=== PATIENT | male | born 1950 | race Caucasian/White ===

== ENCOUNTER 2016-04-15 16:53 | Emergency (ER) | payer OTHER ==
[2016-04-15 17:01] VITALS: BP 153/98
--- OUTSIDE RECORDS SUMMARY | 2016-04-15 17:11 | XMS REPORT | Continuity of Care Document ---
:1950 Author Organization [employer] [place] [address] Care Team Providers Name Role Phone Provider, Not In System Primary Care Provider Unavailable Source Comments This disclosure is being made pursuant to the [employer] program and maynot contain all information available regarding this patient.[employer] Active Allergies and Adverse Reactions Not on File Current Medications Be aware that medications may not be up to date as of this document. Alwaysverify current medications with the patient. Not on file Active Problems Not on file Social History Tobacco Use Types Packs/Day Years Used Date Never Smoker Last Filed Vital Signs Vital Sign Reading Time Taken Blood Pressure 144/88 02/18/2011 8:18 AM INFANT BABYSITTER Pulse 88 02/18/2011 8:18 AM INFANT BABYSITTER Temperature - - Respiratory Rate - - Height - - Weight 99.338 kg (219 lb) 02/18/2011 8:12 AM INFANT BABYSITTER Body Mass Index - - Oxygen Saturation - - Plan of Care Date Type Specialty Providers Description 04/30/2016 Appointment Neurosurgery Andrew Meza Jr., MD [address] [place] [phone] (Fax) Health Maintenance Due Date Last Done Comments Tetanus/Pertussis (1 - Tdap) 1970 Colonoscopy 2001 Well Adult Visit 2001 Zoster Vaccine 60+ 2011 Influenza Immunization (#1) 2015 Pneumococcal Low/Medium Risk 65+ (1 of 2 - PCV13) 01/24/2016 Results from Last 3 Months Not on file
[2016-04-15] MEDS ORDERED: DIPHTH,PERTUSS(ACELL),TET VAC 0.5 ML VIAL IM ONE (17:14)
[2016-04-15] MEDS: DIPHTH,PERTUSS(ACELL),TET VAC 0.5 ML VIAL IM ONE (17:17)
--- NOTE | 2016-04-15 17:19 | ERNOTE ---
Medical Problem HPI - General Chief Complaint: Laceration Time Seen by Provider: 04/15/16 16:59 Source: patient Exam Limitations: no limitations - Immun/Allergies/Home Medications Immunizations: IMMUNIZATION HX Immunizations Up to Date Yes Allergies/Adverse Reactions: Allergies Penicillins Allergy (Verified 04/15/16 17:01) Home Medications: HOME MEDICATIONS Amitriptyline HCl [Elavil] 50 mg PO HS 06/07/14 [Last Taken Unknown] Cyclobenzaprine HCl [Flexeril] 10 mg PO TID #15 tablet 06/07/14 [Last Taken Unknown] HYDROcodone/ACETAMINOPHEN [[place] 5-325] 1 each PO Q4H #30 tablet 06/07/14 [Last Taken Unknown] Losartan Potassium [Cozaar] 100 mg PO DAILY 06/07/14 [Last Taken Unknown] Nabumetone 750 mg PO BID 06/07/14 [Last Taken Unknown] Paroxetine HCl [Paxil] 40 mg PO DAILY 06/07/14 [Last Taken Unknown] Zolpidem Tartrate 10 mg PO HS 06/07/14 [Last Taken Unknown] amLODIPine BESYLATE [Norvasc] 10 mg PO DAILY 06/07/14 [Last Taken Unknown] - History of Present History Narrative: 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 Timing: constant Severity: mild Review of Systems - Review of Systems Constitutional: Present: See HPI EYE: Present: no symptoms reported ENT: Present: no symptoms reported Respiratory: Present: no symptoms reported Cardiology: Present: no symptoms reported Gastrointestinal/Abdominal: Present: no symptoms reported Genitourinary: Present: no symptoms reported Musculoskeletal: Present: no symptoms reported Skin: Present: no symptoms reported Neurological: Present: no symptoms reported Endocrine: Present: no symptoms reported Hematologic/Lymphatic: Present: no symptoms reported Psych: Present: no symptoms reported - Patient's Past Medical History Patient History - Medical: No pertinent hx Patient History - Cardiac/Respiratory: Hypertension Patient History - Cancer: No Hx of Cancer Patient History - Surgical Procedures: No surgical history - Social History Smoking Status: Never smoker Have you smoked in the past 12 months: No - Immunizations Immunizations Up to Date: Yes Physical Exam - Physical Exam General Appearance: Present: wd/wn, alert, mild distress, other - 2 cm scalp laceration at the frontoparietal region Eye Exam: Normal inspection: bilateral, PERRL: bilateral Ears, Nose, Throat: Present: normal ENT inspection, H, normal pharynx Neck: Present: normal inspection, nontender Respiratory: Present: no respiratory distress, normal breath sounds, no accessory muscle use, chest nontender, lungs clear Cardiovascular/Chest: Present: regular rate, rhythm, no murmur, normal peripheral pulses Gastrointestinal/Abdominal: Present: normal bowel sounds, nontender, nondistended, soft, no organomegaly Rectal Exam: Present: deferred Back Exam: Present: normal inspection, normal range of motion Extremity Exam: Present: normal inspection, non-tender, no edema, normal range of motion Neurological Exam: Present: alert, oriented, normal mood/affect Skin Exam: Present: normal color, warm/dry Lymphatic Exam: Present: no adenopathy ED Progress - Vital Signs Patient's Vital Signs:: I have reviewed the patient's vital signs. Vital Signs: Vital Signs 04/15/16 16:58 Temperature 37.9 C H Pulse Rate 95 Respiratory 12 Rate Blood Pressure 153/98 O2 Sat by Pulse 93 Oximetry - Progress/Reassessment Chief Complaint: Laceration Progress:: Improved - Transfer of Care Expected Disposition: Discharge Procedures Head Wound's Depth/Shape: superficial, linear Wound Explored: clean Foreign body identified: metal Distal NVT: neuro/vasc intact Wound Repaired With: dottie - 4 dottie used to close the wound Complications: Pt rico procedure well Plan - Plan Plan: Dottie out in 5 days Departure - Departure Clinical Impression: Scalp laceration Qualifiers: Encounter type: initial encounter Qualified Code(s): S01.01XA - Laceration without foreign body of scalp, initial encounter Condition: Good Instructions: Laceration Care, Adult, [id number] Referrals: Marisabel Beebe DO [Primary Care Provider] -
== END 2016-04-15 17:19 | disposition home or self-care (01) ==
LOC: ER 16:53
PROC: 0HQ0XZZ Repair Scalp Skin, External Approach (ICD-10-PCS; principal; 2016-04-15)
DX: S01.01XA Laceration without foreign body of scalp, initial encounter (principal); X58.XXXA Exposure to other specified factors, initial encounter; Y93.H3 Activity, building and construction; Y92.9 Unspecified place or not applicable; Y99.0 Civilian activity done for income or pay; Z23 Encounter for immunization

== ENCOUNTER 2019-03-21 08:31 | Inpatient (IN) ==
--- NOTE | 2019-03-02 09:05 | ANES ---
Anesthesia Pre Procedure Eval HOME MEDICATIONS PARoxetine HCL [Paxil] 40 mg PO DAILY 06/07/14 [Last Taken Unknown] Zolpidem Tartrate 10 mg PO HS 06/07/14 [Last Taken Unknown] amLODIPine BESYLATE [Norvasc] 10 mg PO DAILY 06/07/14 [Last Taken 12/24/18 08:30] pravastatin 20 mg tablet 20 mg PO DAILY 09/23/17 [Last Taken Unknown] alprazolam 0.5 mg tablet 0.5 mg PO DAILY PRN 02/24/19 [Last Taken Unknown] amitriptyline 10 mg tablet 10 mg PO DAILY 02/24/19 [Last Taken Unknown] irbesartan 150 mg tablet 300 mg PO DAILY 02/24/19 [Last Taken Unknown] vitamin B12 0.5 mg-folic acid 1 mg tablet 1 tab PO DAILY 02/24/19 [Last Taken Unknown] Hydrochlorothiazide [Microzide] 12.5 mg PO DAILY 03/02/19 [Last Taken Unknown] Allergies/Adverse Reactions: Allergies Allergy/AdvReac Type Severity Reaction Status Date / Time Penicillins Allergy severe Verified 03/02/19 07:53 itching everywhere - Planned Procedure Planned Procedure: L Arthroplasty Total Knee Medication List Reviewed:: Yes Allergies Verified: Yes Medical History (Last Reviewed 03/02/19 @ 09:03 by Nadeem Perez CRNA) Bilateral primary osteoarthritis of knee (Acute) Onset Date: Unknown Degenerative joint disease of knee Depression Fibromyalgia Hyperlipidemia Hypertension Insomnia Surgical History (Last Reviewed 03/02/19 @ 09:03 by Nadeem Perez CRNA) History of prostate surgery Family History (Last Reviewed 03/02/19 @ 09:03 by Nadeem Perez CRNA) Father Heart disease Mother Diabetes Hypertension Brother Cancer prostate - Family Anesthesia History Family History:: no untoward family reactions to anesthesia, no familial b leeding tendencies, no family history of clotting disorders, no family history of premature - Airway/Neck/Teeth Within Normal Limits:: Yes Teeth Condition: intact Denture Type: Perm crown/bridge Mallampatti Score: 2 Thyromental (T-M) distance: > 6 cm Mandibulo Hyoid distance: > 3 cm - Respiratory Smoking Status: Never smoker Discussed smoking cessation including day of surgery: No - Cardiovascular Tolerate Activity: Fair Heart Sounds: S1 & S2, Regular - Anesthesia Assessment and Plan ASA Class: PS, III Anesthesia Type Plan: Block - ultrasound guided adductor canal nerve block for postop analgesia, Spinal
[~2019-03-21 08:31] MED LIST: MORPHINE SULFATE 15 MG TABLET.SA PO PRN; ROPIVACAINE HCL/PF 100 MG, EPINEPHrine 0.2 MG, KETOROLAC TROMETHAMINE 30 MG in NORMAL S... IJ PRN; TRANEXAMIC ACID 1,000 MG in NORMAL SALINE 100 ML IV PRN; ceFAZolin SODIUM 1 GM VIAL IV PRN
[2019-03-21] MEDS ORDERED: LIDOCAINE HCL 20 ML VIAL ONE (09:13)
[2019-03-21] MEDS ORDERED: ONDANSETRON HCL/PF 2 MG/ML VIAL ONE (09:13)
[2019-03-21] MEDS ORDERED: fentaNYL CITRATE/PF 50 MCG/ML AMPUL ONE (09:13)
[2019-03-21] MEDS ORDERED: BUPIVACAINE HCL/EPINEPHRINE 50 ML VIAL ONE (09:14)
[2019-03-21] MEDS ORDERED: PROPOFOL VIAL IV ONE (09:14)
[2019-03-21] MEDS: RINGER'S SOLUTION,LACTATED 1,000 ML IV PRN ×3 (09:19→11:49)
[2019-03-21] MEDS ORDERED: ceFAZolin SODIUM 1 GM VIAL ONE (09:24)
[2019-03-21] MEDS ORDERED: MAGNESIUM HYDROXIDE 30 ML UDC PO PRN (11:46)
[2019-03-21] MEDS ORDERED: ZOLPIDEM TARTRATE 5 MG TABLET PO PRN (11:46)
[2019-03-21] MEDS ORDERED: diphenhydrAMINE HCL 50 MG/ML VIAL IV PRN (11:46)
[2019-03-21] MEDS ORDERED: MAG HYDROX/ALUMINUM HYD/SIMETH 30 ML UDC PO PRN (11:46)
[2019-03-21] MEDS ORDERED: ONDANSETRON HCL/PF 2 MG/ML VIAL IV PRN (11:46)
[2019-03-21] MEDS ORDERED: ACETAMINOPHEN 500 MG TABLET PO PRN (11:46)
[2019-03-21] MEDS ORDERED: DEXTROSE 5%-LACTATED RINGERS 1,000 ML IV PRN (11:47)
[2019-03-21] MEDS ORDERED: ALPRAZolam 0.5 MG TABLET PO PRN (11:48)
--- NOTE | 2019-03-21 11:52 | OR ---
Operative Report - Dictated Report Narrative: Date: 03/21/2019 Preoperative diagnosis: Left knee degenerative joint disease. Postoperative diagnosis: Left knee degenerative joint disease. Procedure: Left total knee arthroplasty. Surgeon: Zeke Neal M.D. Online Marketing Strategist: Lucho Hewitt PA-C (provided and essential set of skilled, educated hands that assisted with transfer, positioning, prepping, draping, manipulation, retraction, placement of jigs, injection, insertion of implants, irrigation, closure wounds, and dressings all of which could not be performed by the available surgical crew) Anesthesia: Spinal with regional block and local periarticular joint injection. Complications: None Specimens: Bone. Estimated blood loss: Minimal. Tourniquet time: 95 Minutes at 300 millimeters of mercury. Retained implants: Depuy Attune size 8 left lugged cemented posterior stabilized femoral component. Size 7 fixed-bearing cemented tibial platform. 8 by 8 millimeter posterior stabilized cross-linked tibial insert. 41 millimeter medialized patella button. Indications: Mr. Gonzales is a 69-year-old gentleman who has had longstanding bilateral knee arthrosis and pain. He is here today for his first of 2 staged total knees on the left today. This patient was followed in my clinic for period of time with significant complaints of left knee pain consistent with arthritic changes. He had failed conservative measures including, but not limited to, activity modification, passage of time, medications, and other conservative measures. Patient wished to proceed with surgical treatment. The risks, benefits, and alternatives were discussed in clinic. The risks of , blood clots, bleeding, infection, nerve/tendon blood vessel/ injury, malposition of components, intraoperative fracture, postoperative limited range of motion, persistent pain, failure of components, and need for additional procedures. Patient wished to proceed consent was obtained after answering all questions. Procedure: After marking the correct extremity on the floor, the patient was taken to the operating room. A timeout was performed. IV antibiotics consisting of Ancef were administered prior to the procedure. A regional followed by spinal anesthetic was induced by anesthesia, per my request, on the operative table with all bony prominences well-padded. Ramesh catheter was placed, and a bump was placed under the operative side buttock. SCDs and CHRISTIE hose were utilized on the nonoperative leg. A well-padded tourniquet was applied to the operative thigh. The operative leg was then pre-scrubbed with alcohol, prepped, and draped in a standard sterile fashion. After exsanguinating the extremity with an Esmarch bandage, the tourniquet was inflated. After marking out the anterior knee for standard incision centered over the patella, the skin was incised and dissected down to the joint retinaculum. The joint retinaculum was marked out as well as the horizontal axis of the patella, and a standard medial parapatellar arthrotomy was then made. The most proximal aspect of the quadriceps tendon and the patella tendon insertion were protected from release. A partial synovectomy was performed as well as a resection of the infrapatellar fat pad. The distal femoral fat pad proximal to the trochlea was also resected using cautery. The soft tissues were elevated off the medial aspect of the proximal tibia using a Elaine elevator ensuring that we did not transect the medial collateral ligament. Upon initial evaluation range of motion was approximately 5 degrees to 100 degrees of flexion. There were signs of advanced arthrosis in the medial, lateral, and patellofemoral joint spaces. There were large marginal osteophytes which were removed with a rongeur. The knee was hyperflexed and the patella was tucked laterally. Protecting the surrounding soft tissues with Homans, an entry drill was placed down the femoral canal using Whitesides line for guidance into the entry point. The intramedullary femoral alignment sidra was utilized in order to cut the distal femur in 5 degrees of valgus resecting 10 millimeters of bone. Next the distal femur was sized to a size 8. A posterior referencing guide was utilized to place the distal femoral cutting block in 3 degrees of external rotation. This was pinned into place. The rotation was confirmed both visually and based on anatomic landmarks. The 4 in 1 cutting jig of the appropriate size was utilized in order to make all bony cuts. The angle wing was used to ensure no notching. Retractors were utilized in order to protect surrounding soft tissues. This cut did not result in any excessive notching. We then cut the box centered over the distal femur. This allowed for resection of the anterior and posterior cruciate ligaments. I then turned my attention to the preparation of the tibia. Using an extra medullary tibial alignment sidra, 2 millimeters of bone was resected off the medial articular surface. This was made perpendicular to the mechanical axis of the joint with the alignment sidra centered over the ankle mortise. The alignment sidra was checked and was noted to be parallel to the mechanical axis, centered over the medial one third of the tibial tubercle, paralleling the anterior surface of the tibia. We then turned our attention to the remaining meniscus and soft tissues. These were removed while protecting the surrounding ligaments and soft tissues. The marginal osteophytes off the anterior, posterior, medial, lateral aspects of the femur and tibia were removed. The tibia was sized out to a size 7. Next the tibia was drilled and punched in an externally rotated position. Next the trial femur and a series of tibial inserts were utilized in order to allow for full extension and maximal flexion. It was found that a 8 millimeter insert gave the best range of motion and stability at multiple flexion points as well as at full extension there was less than 2 mm of gapping both medially and laterally. There is minimal anterior translation with the knee at 90 degrees of flexion and no signs of bein g able to dislocate the knee. The patella was then prepared. The initial thickness was 24 millimeters. This was reamed down to 13 millimeters parallel to the anterior surface of the patella. It was sized out to a size 41 medialized patella button. This was then drilled and trialed. Without any medial restraint the patella tracked appropriately and did not sublux or dislocate. At this point, it was felt these were the appropriate sized implants, and all trials were removed. The standard periarticular joint injection consisting of ropivacaine, Toradol, and epinephrine were injected into the periarticular joint tissues. The bony surfaces were thoroughly irrigated with a pulsatile-suction saline irrigation device. A bone plug from the prior resected anterior chamfer cut was placed into the drill hole at the distal femur. The bony surfaces were then dried in preparation for placement of the implants. The cement was vacuum mixed per the dish machine operator's instructions. The cement was placed on the dry bony surfaces and posterior aspect of the implants. The implants were impacted into place, removing all extruded cement. At this point anesthesia administered tranexamic acid per protocol intravenously. The knee was placed in extension with axial loading with the trial insert while the cement cured. Once the cement cured, all remaining extruded cement was removed. The knee was placed through a range of motion with the trial insert to ensure appropriate range of motion and stability. Final range of motion was approximately 0 to 120 degrees. The knee was again thoroughly irrigated with pulsatile saline lavage. The final polyethylene insert was then impacted into place ensuring no retained soft tissues. The remaining periarticular joint injection was injected. A medium Hemovac drain was placed exiting superior laterally. The knee was then placed over a triangle and the arthrotomy was closed with interrupted #1 Vicryl after thoroughly irrigating the joint. The deep and subcutaneous tissues were closed with interrupted 0 and 3-0 Vicryl respectively. Skin was closed with a running subcutaneous 3-0 Monocryl and Prineo Dermabond dressing. 4 x 4's, Sof-Rol, and a full leg Ashkan wrap were applied. All sponge, needle, blade, and instrument counts were correct prior to closing the wounds. Postoperative condition: The patient was awoken and transferred to the postanesthesia care unit in stable condition. Plan is to be admitted to the inpatient medical/surgical floor postoperatively for 24 hours of IV antibiotics, physical therapy, occupational therapy, and medical comanagement. Patient will be weightbearing as tolerated with range of motion as tolerated. DVT prophylaxis will be with SCDs, CHRISTIE hose, and pharmacological anticoagulation. Anticipated hospital stay is approximately 1-3 days.
--- NOTE | 2019-03-21 12:08 | ANES ---
Post Anesthesia Discharge - Transfer of Care Transfer of Care handoff given to nurse: Yes - Discharge from PACU Discharge from PACU when meets criteria: Yes - Comfortable in PACU.
[2019-03-21] MEDS: ceFAZolin SODIUM 1 GM in DEXTROSE 5 % IN WATER 100 ML IV SCH ×4 (13:02→20:41)
[2019-03-21] MEDS: KETOROLAC TROMETHAMINE 15 MG/ML VIAL IV SCH ×2 (13:04→20:42)
[2019-03-21] MEDS ORDERED: LOSARTAN POTASSIUM 50 MG TABLET ONE (13:29)
[2019-03-21] MEDS: LOSARTAN POTASSIUM 50 MG TABLET PO SCH (13:34)
[2019-03-21] MEDS: oxyCODONE HCL/ACETAMINOPHEN 1 TAB TABLET PO PRN ×2 (14:07→20:11)
[2019-03-21] MEDS: SENNOSIDES/DOCUSATE SODIUM 1 TAB TABLET PO SCH (20:42)
[2019-03-21] MEDS: AMITRIPTYLINE HCL 10 MG TABLET PO SCH (20:43)
[2019-03-21] MEDS: MORPHINE SULFATE 15 MG TABLET.SA PO SCH (20:48)
[2019-03-21] MEDS: ZOLPIDEM TARTRATE 10 MG TABLET PO SCH (20:55)
[2019-03-22] MEDS: KETOROLAC TROMETHAMINE 15 MG/ML VIAL IV SCH ×4 (02:07→20:26)
[2019-03-22] MEDS: ceFAZolin SODIUM 1 GM in DEXTROSE 5 % IN WATER 100 ML IV SCH ×2 (02:07)
[2019-03-22 06:18] LABS: Hematocrit 36.5 % (42.0-52.0); Hemoglobin 12.3 gm/dL (13.5-18.0); Mean Cell Volume 100.8 fl (78-100); Mean Corpuscular Hgb Conc 33.7 g/dl (32-36); Mean Platelet Volume 8.4 fl (8-11.3); Platelet Count 277 K/mm3 (150-450); Red Blood Count 3.62 M/mm3 (4.7-6.0); Red Cell Distribution Width 15.6 % (11.5-14.0); White Blood Count 8.2 K/mm3 (4.0-10.5)
[2019-03-22 06:32] LABS: Anion Gap 9.7 mmol/L (6.8-13.8); BUN/Creatinine Ratio 17.8 (9.0-21.6); Calcium * 8.4 mg/dL (7.9-10.9); Estimated Creat Clear 72.5; Potassium 3.7 mmol/L (3.4-4.6)
[2019-03-22] MEDS: oxyCODONE HCL/ACETAMINOPHEN 1 TAB TABLET PO PRN ×3 (06:38→18:17)
--- NOTE | 2019-03-22 07:11 | ANES ---
Anesthesia Procedure Note Procedure Note: ANESTHESIA PROCEDURE NOTE Date of Procedure: 03/21/2019. Time of procedure: 934. Performed by: Nadeem Perez CRNA Aircrewman: None. Preprocedure diagnosis: Left knee degenerative joint disease. Post procedure diagnosis: Same. Procedure: Left ultrasound guided adductor canal block for postoperative analgesia. Indications: The patient is a 69-year-old male, requesting left ultrasound- guided abductor canal block for postoperative analgesia related to left total knee arthroplasty. Findings: See below. Details of the procedure: The tissue over the intended target site was cleansed with ChloraPrepand draped in a sterile fashion. 2 ml Lidocaine 1 % was infiltrated to the skin and subcutaneous tissue at the intended target site. Under sterile technique and ultrasound guidance a 20-gauge block needle was inserted through the left sartorius muscle to the saphenous nerve just anterior and medial to the superficial femoral artery and vein. 15 mL's of 0.5% bupivacaine was injected after negative aspiration for blood. Needle tip and spread of local anesthetic surrounding the saphenous nerve was observed throughout the injection with real time ultrasound visualization. The needle was then removed intact. No complications were noted. The images were retained in the Hospital medical database. EBL: Minimal. Fluids: N/A. Specimen: N/A. Post procedure condition: The patient tolerated the procedure well. No complications were noted. Thank you for this consultation. Nadeem Perez CRNA
--- NOTE | 2019-03-22 08:13 | PN ---
Subjective - Date and Time Seen Date: 03/22/19 Time: 08:09 Subjective Narrative: Patient reports pain is controlled. Reports no nausea. Overall he states he feels well. Biggest complaint is he did not sleep well last night. States he normally has difficulty sleeping. States he was able to get up to the chair easily. Objective Objective Narrative: Bandages clean dry intact. Drain intact. Calf supple. He is able to pl antarflex and dorsiflex left ankle. Vital signs reviewed and stable. BMP stable. Hemoglobin 12.3 - Vitals Vitals: Last Vital Signs Temp 36.9 C 03/22/19 06:56 Pulse 85 03/22/19 06:56 Resp 16 03/22/19 06:56 BP 140/86 03/22/19 06:56 Pulse Ox 98 03/22/19 06:56 - Abnormal Lab Findings Abnormal Lab Findings: Abnormal Lab Results 03/22/19 03/22/19 Range/Units 06:05 06:05 RBC 3.62 L (4.7-6.0) M/mm3 Hgb 12.3 L (13.5-18.0) gm/dL Hct 36.5 L (42.0-52.0) % MCV 100.8 H (78-100) fl MCH 34.0 H (27-31) pg RDW 15.6 H (11.5-14.0) % Random Glucose 116 H (70-110) mg/dL - Exam Constitutional: Present: Alert, Oriented x3, Cooperative, No distress Cauti Physician Documentation - Urinary Catheter Management 2-way Urethral Date of Insertion: 03/21/19 Time of Insertion: 10:00 Assessment/Plan - Problems/Diagnosis (1) Status post left knee replacement Problem: Acute Narrative: PT, pain control, anticoagulation-he will get 1 dose of Lovenox today and this will be held tomorrow, patient set up to proceed with right total knee tomorrow morning, n.p.o. at midnight tonight, will increase Ambien to 10 mg dose. (2) Acute blood loss anemia Problem: Acute Narrative: Down from 14.0 g preoperatively. Asymptomatic observation at this time.
[2019-03-22] MEDS ORDERED: AMITRIPTYLINE HCL 10 MG TABLET PO SCH (09:00)
[2019-03-22] MEDS: LOSARTAN POTASSIUM 50 MG TABLET PO SCH (09:29)
[2019-03-22] MEDS: PARoxetine HCL 20 MG TABLET PO SCH (09:30)
[2019-03-22] MEDS: CYANOCOBALAMIN PO SCH (09:31)
[2019-03-22] MEDS: SIMVASTATIN 10 MG TABLET PO SCH (09:31)
[2019-03-22] MEDS: HYDROCHLOROTHIAZIDE 12.5 MG CAPSULE PO SCH (09:31)
[2019-03-22] MEDS: FOLIC ACID PO SCH (09:31)
[2019-03-22] MEDS: amLODIPine BESYLATE 10 MG TABLET PO SCH (09:31)
[2019-03-22] MEDS: MORPHINE SULFATE 15 MG TABLET.SA PO SCH ×2 (09:37→20:30)
[2019-03-22] MEDS ORDERED: ENOXAPARIN SODIUM 40 MG/0.4 ML SYRG SC SCH (10:46)
[2019-03-22] MEDS: SENNOSIDES/DOCUSATE SODIUM 1 TAB TABLET PO SCH (20:26)
[2019-03-22] MEDS: AMITRIPTYLINE HCL 10 MG TABLET PO SCH (20:27)
[2019-03-22] MEDS: ZOLPIDEM TARTRATE 10 MG TABLET PO SCH (20:29)
[2019-03-22] MEDS ORDERED: ZOLPIDEM TARTRATE 10 MG TABLET PO SCH (21:00)
[2019-03-23] MEDS: KETOROLAC TROMETHAMINE 15 MG/ML VIAL IV SCH ×5 (00:09→23:41)
[2019-03-23] MEDS ORDERED: ceFAZolin SODIUM 1 GM VIAL IV PRN (06:00)
[2019-03-23] MEDS: RINGER'S SOLUTION,LACTATED 1,000 ML IV PRN ×3 (06:25→09:24)
[2019-03-23] MEDS ORDERED: ISOPROPYL ALCOHOL 480 APPL BTL MC ONE (06:37)
[2019-03-23] MEDS ORDERED: ceFAZolin SODIUM 1 GM VIAL ONE (06:37)
[2019-03-23] MEDS: HYDROCHLOROTHIAZIDE 12.5 MG CAPSULE PO SCH ×2 (06:42→08:16)
[2019-03-23] MEDS: amLODIPine BESYLATE 10 MG TABLET PO SCH ×2 (06:43→08:14)
[2019-03-23] MEDS ORDERED: ROPIVACAINE HCL/PF 100 MG, EPINEPHrine 0.2 MG, KETOROLAC TROMETHAMINE 30 MG in NORMAL S... IJ PRN (07:25)
--- NOTE | 2019-03-23 07:38 | ANES ---
Anesthesia Pre Procedure Eval Vitals/Labs: Last Vital Signs Temp 37.1 C 03/23/19 06:27 Pulse 83 03/23/19 06:43 Resp 20 03/23/19 06:27 BP 145/78 03/23/19 06:43 Pulse Ox 92 L 03/23/19 06:27 HOME MEDICATIONS PARoxetine HCL [Paxil] 40 mg PO DAILY 06/07/14 [Last Taken Unknown] Zolpidem Tartrate 10 mg PO HS 06/07/14 [Last Taken Unknown] amLODIPine BESYLATE [Norvasc] 10 mg PO DAILY 06/07/14 [Last Taken 03/21/19 07:00] pravastatin 20 mg tablet 20 mg PO DAILY 09/23/17 [Last Taken Unknown] alprazolam 0.5 mg tablet 0.5 mg PO DAILY PRN 02/24/19 [Last Taken Unknown] amitriptyline 10 mg tablet 10 mg PO HS 02/24/19 [Last Taken Unknown] irbesartan 150 mg tablet 300 mg PO DAILY 02/24/19 [Last Taken Unknown] vitamin B12 0.5 mg-folic acid 1 mg tablet 1 tab PO DAILY 02/24/19 [Last Taken Unknown] Hydrochlorothiazide [Microzide] 12.5 mg PO DAILY 03/02/19 [Last Taken 03/21/19 07:00] Allergies/Adverse Reactions: Allergies Allergy/AdvReac Type Severity Reaction Status Date / Time Penicillins Allergy Severe severe Verified 03/21/19 08:56 itching everywhere - Planned Procedure Planned Procedure: LTK ON 03/21/19 AND RTK ON 03/23/19 Medication List Reviewed:: Yes Allergies Verified: Yes Medical History (Last Reviewed 03/23/19 @ 07:36 by Nadeem Perez CRNA) Bilateral primary osteoarthritis of knee (Acute) Onset Date: Unknown Kidney stones Degenerative joint disease of knee Depression Fibromyalgia Hyperlipidemia Hypertension Insomnia Surgical History (Last Reviewed 03/23/19 @ 07:36 by Nadeem Perez CRNA) History of prostate surgery Family History (Last Reviewed 03/23/19 @ 07:36 by Nadeem Perez CRNA) Father Heart disease Mother Diabetes Hypertension Brother Cancer prostate - Family Anesthesia History Family History:: no untoward family reactions to anesthesia, no familial bleeding tendencies, no family history of clotting disorders, no family history of premature - Airway/Neck/Teeth Within Normal Limits:: Yes Teeth Condition: intact Denture Type: Perm crown/bridge Mallampatti Score: 2 Thyromental (T-M) distance: > 6 cm Mandibulo Hyoid distance: > 3 cm - Respiratory Respiratory Physical: lungs clear Smoking Status: Never smoker Discussed smoking cessation including day of surgery: No Sleep Apnea currently treated: No Sleep Apnea by current assessment: No Discussed Risks/Treatment of JOANNA: No - Cardiovascular Tolerate Activity: Good Heart Sounds: S1 & S2, Regular - Gastrointestinal NPO since: mn - Anesthesia Assessment and Plan ASA Class: PS, III Anesthesia Type Plan: Block - Ultrasound guided adductor canal nerve block for postop analgesia, Spinal
[2019-03-23] MEDS ORDERED: ONDANSETRON HCL/PF 2 MG/ML VIAL ONE (07:48)
[2019-03-23] MEDS ORDERED: PROPOFOL VIAL IV ONE (07:48)
[2019-03-23] MEDS ORDERED: LIDOCAINE HCL 20 ML VIAL ONE (07:48)
[2019-03-23] MEDS ORDERED: BUPIVACAINE HCL/EPINEPHRINE 50 ML VIAL ONE (07:48)
[2019-03-23] MEDS ORDERED: fentaNYL CITRATE/PF 50 MCG/ML AMPUL ONE (07:48)
[2019-03-23] MEDS: CYANOCOBALAMIN PO SCH (08:14)
[2019-03-23] MEDS: FOLIC ACID PO SCH (08:14)
[2019-03-23] MEDS: MORPHINE SULFATE 15 MG TABLET.SA PO SCH ×2 (08:16→20:00)
[2019-03-23] MEDS: TRANEXAMIC ACID 1,000 MG in NORMAL SALINE 100 ML IV PRN ×2 (09:37→10:00)
[2019-03-23] MEDS ORDERED: DEXTROSE 5%-LACTATED RINGERS 1,000 ML IV PRN (10:12)
--- NOTE | 2019-03-23 10:12 | OR ---
Operative Report - Dictated Report Narrative: Date: 03/23/2019 Preoperative diagnosis: Right knee degenerative joint disease. Postoperative diagnosis: Right knee degenerative joint disease. Procedure: Right total knee arthroplasty. Surgeon: Zeke Neal M.D. Greeting Card Writer: Lucho Hewitt PA-C (provided and essential set of skilled, educated hands that assisted with transfer, positioning, prepping, draping, manipulation, retraction, placement of jigs, injection, insertion of implants, irrigation, closure wounds, and dressings all of which could not be performed by the available surgical crew) Anesthesia: Spinal with regional block and local periarticular joint injection. Complications: None Specimens: Bone. Estimated blood loss: Minimal. Tourniquet time: 95 Minutes at 300 millimeters of mercury. Retained implants: Depuy Attune size 8 right lugged cemented posterior stabilized femoral component. Size 8 fixed-bearing cemented tibial platform. 8 by 5 millimeter posterior stabilized cross-linked tibial insert. 41 millimeter medialized patella button. Indications: Mr. Gonzales is a 69-year-old gentleman who is here today for his second of staged bilateral total knee arthroplasty being his right today.. This patient was followed in my clinic for period of time with significant complaints of right knee pain consistent with arthritic changes. He had failed conservative measures including, but not limited to, activity modification, passage of time, medications, and other conservative measures. Patient wished to proceed with surgical treatment. The risks, benefits, and alternatives were discussed in clinic. The risks of , blood clots, bleeding, infection, nerve/tendon blood vessel/ injury, malposition of components, intraoperative fracture, postoperative limited range of motion, persistent pain, failure of components, and need for additional procedures. Patient wished to proceed consent was obtained after answering all questions. Procedure: After marking the correct extremity on the floor, the patient was taken to the operating room. A timeout was performed. IV antibiotics consisting of Ancef were administered prior to the procedure. A regional followed by spinal anesthetic was induced by anesthesia, per my request, on the operative table with all bony prominences well-padded. Ramesh catheter was already in place, and a bump was placed under the operative side buttock. SCDs and CHRISTIE hose were utilized on the nonoperative leg. A well-padded tourniquet was applied to the operative thigh. The operative leg was then pre-scrubbed with alcohol, prepped, and draped in a standard sterile fashion. After exsanguinating the extremity with an Esmarch bandage, the tourniquet was inflated. After marking out the anterior knee for standard incision centered over the patella, the skin was incised and dissected down to the joint retinaculum. The joint retinaculum was marked out as well as the horizontal axis of the patella, and a standard medial parapatellar arthrotomy was then made. The most proximal aspect of the quadriceps tendon and the patella tendon insertion were protected from release. A partial synovectomy was performed as well as a resection of the infrapatellar fat pad. The distal femoral fat pad proximal to the trochlea was also resected using cautery. The soft tissues were elevated off the medial aspect of the proximal tibia using a Elaine elevator ensuring that we did not transect the medial collateral ligament. Upon initial evaluation range of motion was approximately 5 degrees to 100 degrees of flexion. There were signs of advanced arthrosis in the medial, lateral, and patellofemoral joint spaces. There were large marginal osteophytes which were removed with a rongeur. The knee was hyperflexed and the patella was tucked laterally. Protecting the surrounding soft tissues with Homans, an entry drill was placed down the femoral canal using Whitesides line for guidance into the entry point. The intramedullary femoral alignment sidra was utilized in order to cut the distal femur in 5 degrees of valgus resecting 10 millimeters of bone. Next the distal femur was sized to a size 8. A posterior referencing guide was utilized to place the distal femoral cutting block in 3 degrees of external rotation. This was pinned into place. The rotation was confirmed both visually and based on anatomic landmarks. The 4 in 1 cutting jig of the appropriate size was utilized in order to make all bony cuts. The angle wing was used to ensure no notching. Retractors were utilized in order to protect surrounding soft tissues. This cut did not result in any excessive notching. We then cut the box centered over the distal femur. This allowed for resection of the anterior and posterior cruciate ligaments. I then turned my attention to the preparation of the tibia. Using an extra medullary tibial alignment sidra, 2 millimeters of bone was resected off the medial articular surface. This was made perpendicular to the mechanical axis of the joint with the alignment sidra centered over the ankle mortise. The alignment sidra was checked and was noted to be parallel to the mechanical axis, centered over the medial one third of the tibial tubercle, paralleling the anterior surface of the tibia. We then turned our attention to the remaining meniscus and soft tissues. These were removed while protecting the surrounding ligaments and soft tissues. The marginal osteophytes off the anterior, posterior, medial, lateral aspects of the femur and tibia were removed. The tibia was sized out to a size 8. Next the tibia was drilled and punched in an externally rotated position. Next the trial femur and a series of tibial inserts were utilized in order to allow for full extension and maximal flexion. It was found that a 5 millimeter insert gave the best range of motion and stability at multiple flexion points as well as at full extension there was less than 2 mm of gapping both medially and laterally. There is minimal anterior translation with the knee at 90 degrees of flexion and no signs of being able to dislocate the knee. The patella was then prepared. The initial thickness was 25 millimeters. This was reamed down to 15 millimeters parallel to the anterior surface of the patella. It was sized out to a size 41 medialized patella button. This was then drilled and trialed. Without any medial restraint the patella tracked appropriately and did not sublux or dislocate. At this point, it was felt these were the appropriate sized implants, and all trials were removed. The standard periarticular joint injection consisting of ropivacaine, Toradol, and epinephrine were injected into the periarticular joint tissues. The bony surfaces were thoroughly irrigated with a pulsatile-suction saline irrigation device. A bone plug from the prior resected anterior chamfer cut was placed into the drill hole at the distal femur. The bony surfaces were then dried in preparation for placement of the implants. The cement was vacuum mixed per the preventive medicine specialist's instructions. The cement was placed on the dry bony surfaces and posterior aspect of the implants. The implants were impacted into place, removing all extruded cement. At this point anesthesia administered tranexamic acid per protocol intravenously. The knee was placed in extension with axial loading with the trial insert while the cement cured. Once the cement cured, all remaining extruded cement was removed. The knee was placed through a range of motion with the trial insert to ensure appropriate range of motion and stability. Final range of motion was approximately 0 to 120 degrees. The knee was again thoroughly irrigated with pulsatile saline lavage. The final polyethylene insert was then impacted into place ensuring no retained soft tissues. The remaining periarticular joint injection was injected. A medium Hemovac drain was placed exiting superior laterally. The knee was then placed over a triangle and the arthrotomy was closed with interrupted #1 Vicryl after thoroughly irrigating the joint. The deep and subcutaneous tissues were closed with interrupted 0 and 3-0 Vicryl respectively. Skin was closed with a running subcutaneous 3-0 Monocryl and Prineo Dermabond dressing. 4 x 4's, Sof-Rol, and a full leg Ashkan wrap were applied. All sponge, needle, blade, and instrument counts were correct prior to closing the wounds. Postoperative condition: The patient was awoken and transferred to the postanesthesia care unit in stable condition. Plan is to be admitted to the inpatient medical/surgical floor postoperatively for 24 hours of IV antibiotics, physical therapy, occupational therapy, and medical comanagement. Patient will be weightbearing as tolerated with range of motion as tolerated. DVT prophylaxis will be with SCDs, CHRISTIE hose, and pharmacological anticoagulation. Anticipated hospital stay is approximately 1-3 days.
--- NOTE | 2019-03-23 10:32 | ANES ---
Post Anesthesia Discharge - Transfer of Care Transfer of Care handoff given to nurse: Yes - Discharge from PACU Discharge from PACU when meets criteria: Yes - Discharge to ASU Discharge to ASU-no complications/pt stable: Yes
--- NOTE | 2019-03-23 10:34 | ANES ---
Anesthesia Procedure Note Procedure Note: ANESTHESIA PROCEDURE NOTE Date of Procedure: 03/23/2019. Time of procedure: 0800. Performed by: Nadeem Perez CRNA Erco Machine Operator: None. Preprocedure diagnosis: Right knee degenerative joint disease. Post procedure diagnosis: Same. Procedure: Right ultrasound guided adductor canal block for postoperative analgesia. Indications: The patient is a 69-year-old male, requesting right ultrasound- guided abductor canal block for postoperative analgesia related to right total knee arthroplasty. Findings: See below. Details of the procedure: The tissue over the intended target site was cleansed with ChloraPrepand draped in a sterile fashion. 2 ml Lidocaine 1 % was infiltrated to the skin and subcutaneous tissue at the intended target site. Under sterile technique and ultrasound guidance a 20-gauge block needle was inserted through the right sartorius muscle to the saphenous nerve just anterior and medial to the superficial femoral artery and vein. 15 mL's of 0.5% bupivacaine was injected after negative aspiration for blood. Needle tip and spread of local anesthetic surrounding the saphenous nerve was observed throughout the injection with real time ultrasound visualization. The needle was then removed intact. No complications were noted. The images were retained in the Hospital medical database. EBL: Minimal. Fluids: N/A. Specimen: N/A. Post procedure condition: The patient tolerated the procedure well. No complications were noted. Thank you for this consultation. Nadeem Perez CRNA
--- NOTE | 2019-03-23 10:34 | ANES ---
Post Anesthesia Assessment - Vital Signs Vitals: Last Vital Signs Temp 38.1 C H 03/23/19 10:25 Pulse 84 03/23/19 10:25 Resp 18 03/23/19 10:25 BP 121/67 03/23/19 10:25 Pulse Ox 92 L 03/23/19 10:25 Airway Patency: Normal - Mental Status Level Of Consciousness: Awake - Pain Level Pain Score: 0 - N/V Assessment Nausea/Vomiting Presence: None Dehydration:: No
[2019-03-23] MEDS: ceFAZolin SODIUM 1 GM in DEXTROSE 5 % IN WATER 100 ML IV SCH ×6 (12:32→23:41)
[2019-03-23] MEDS: oxyCODONE HCL/ACETAMINOPHEN 1 TAB TABLET PO PRN ×2 (12:34→21:02)
[2019-03-23] MEDS: PARoxetine HCL 20 MG TABLET PO SCH (12:35)
[2019-03-23] MEDS: LOSARTAN POTASSIUM 50 MG TABLET PO SCH (12:36)
[2019-03-23] MEDS: SIMVASTATIN 10 MG TABLET PO SCH (12:37)
[2019-03-23] MEDS: ZOLPIDEM TARTRATE 10 MG TABLET PO SCH (20:00)
[2019-03-23] MEDS: AMITRIPTYLINE HCL 10 MG TABLET PO SCH (20:01)
[2019-03-23] MEDS: SENNOSIDES/DOCUSATE SODIUM 1 TAB TABLET PO SCH (20:01)
[2019-03-23] MEDS: MORPHINE SULFATE 2 MG/ML DISP.SYRIN IV PRN (22:06)
[2019-03-24] MEDS: KETOROLAC TROMETHAMINE 15 MG/ML VIAL IV SCH ×4 (04:27→23:30)
[2019-03-24 06:27] LABS: Hematocrit 29.8 % (42.0-52.0); Hemoglobin 9.7 gm/dL (13.5-18.0); Mean Cell Volume 101.7 fl (78-100); Mean Corpuscular Hemoglobin 33.1 pg (27-31); Mean Corpuscular Hgb Conc 32.6 g/dl (32-36); Mean Platelet Volume 8.4 fl (8-11.3); Platelet Count 240 K/mm3 (150-450); Red Blood Count 2.93 M/mm3 (4.7-6.0); Red Cell Distribution Width 15.5 % (11.5-14.0); White Blood Count 11.1 K/mm3 (4.0-10.5)
[2019-03-24 06:32] LABS: Anion Gap 13.3 mmol/L (6.8-13.8); BUN/Creatinine Ratio 21.7 (9.0-21.6); Calcium * 8.2 mg/dL (7.9-10.9); Carbon Dioxide 27.8 mmol/L (24-32.6); Estimated Creat Clear 79.5; Potassium 4.1 mmol/L (3.4-4.6)
[2019-03-24] MEDS: oxyCODONE HCL/ACETAMINOPHEN 1 TAB TABLET PO PRN ×3 (07:34→20:25)
--- NOTE | 2019-03-24 08:29 | PN ---
Subjective - Date and Time Seen Date: 03/24/19 Time: 08:25 Subjective Narrative: Subjective: Reports right greater than left knee pain. Was able to get to the chair with therapy. Pain is tolerable. He states when he naps the pain improved some. Voiding without any complications. Tolerating by mouth intake. Denies any nausea or vomiting. Denies calf pain. Physical exam: Alert and oriented to person, place and time Bilateral lower extremity: Palpable dorsalis pedis pulse. Sensation grossly intact to light touch. Dressings clean and intact in the right. Able to flex and extend ankle and toes. No excessive drainage. Calf and thigh are soft and nontender. Assessment: Postop day 1 status post right total knee arthroplasty, postop day 3 status post left total knee arthroplasty. Plan: Due to the need for pain control, post-operative limited mobility, protection of the surgical site and joint, monitoring of the wound, and the management of chronic medical conditions, [] requires continued inpatient care. Continue with physical and occupational therapy weightbearing as tolerated. Continue with anticoagulation. 24 hours postoperative prophylactic antibiotics. Pain control with goal to rely on oral medications. Continue bowel regimen. Will need 6 weeks with walker or assitive device to protect joint while ambulating during the recovery process. Discharge planning. Discontinue drain. We discussed that if his pain is not well controlled on his current regimen we will make some adjustments but he states that he is okay at this time. Objective - Vitals Vitals: Last Vital Signs Temp 36.7 C 03/24/19 07:30 Pulse 93 03/24/19 07:30 Resp 20 03/24/19 07:30 BP 128/81 03/24/19 07:30 Pulse Ox 93 03/24/19 07:23 - Abnormal Lab Findings Abnormal Lab Findings: Abnormal Lab Results 03/24/19 03/24/19 Range/Units 06:10 06:10 WBC 11.1 H D (4.0-10.5) K/mm3 RBC 2.93 L (4.7-6.0) M/mm3 Hgb 9.7 L (13.5-18.0) gm/dL Hct 29.8 L (42.0-52.0) % MCV 101.7 H (78-100) fl MCH 33.1 H (27-31) pg RDW 15.5 H (11.5-14.0) % BUN/Creatinine Ratio 21.7 H (9.0-21.6) Random Glucose 138 H (70-110) mg/dL Cauti Physician Documentation - Urinary Catheter Management 2-way Urethral Date of Insertion: 03/21/19 Time of Insertion: 10:00 Date of Removal: 03/23/19 Time of Removal: 14:30 Assessment/Plan - Problems/Diagnosis (1) Status post right knee replacement Problem: Acute (2) Acute blood loss anemia Problem: Acute (3) Status post left knee replacement Problem: Acute (4) HTN (hypertension) Problem: Chronic (5) Hyperlipemia Problem: Chronic (6) Anxiety and depression Problem: Chronic (7) Insomnia Problem: Chronic (8) RLS (restless legs syndrome) Problem: Chronic
[2019-03-24] MEDS: MORPHINE SULFATE 2 MG/ML DISP.SYRIN IV PRN ×2 (09:16→09:49)
[2019-03-24] MEDS: FOLIC ACID PO SCH (09:46)
[2019-03-24] MEDS: CYANOCOBALAMIN PO SCH (09:46)
[2019-03-24] MEDS: ENOXAPARIN SODIUM 40 MG/0.4 ML SYRG SC SCH (10:18)
[2019-03-24] MEDS: PARoxetine HCL 20 MG TABLET PO SCH (10:19)
[2019-03-24] MEDS: amLODIPine BESYLATE 10 MG TABLET PO SCH (10:19)
[2019-03-24] MEDS: MORPHINE SULFATE 15 MG TABLET.SA PO SCH ×2 (10:20→20:25)
[2019-03-24] MEDS: SIMVASTATIN 10 MG TABLET PO SCH (10:21)
[2019-03-24] MEDS: HYDROCHLOROTHIAZIDE 12.5 MG CAPSULE PO SCH (10:21)
[2019-03-24] MEDS: LOSARTAN POTASSIUM 50 MG TABLET PO SCH (10:21)
[2019-03-24] MEDS: SENNOSIDES/DOCUSATE SODIUM 1 TAB TABLET PO SCH (20:19)
[2019-03-24] MEDS: AMITRIPTYLINE HCL 10 MG TABLET PO SCH (20:19)
[2019-03-24] MEDS: ZOLPIDEM TARTRATE 10 MG TABLET PO SCH (20:25)
[2019-03-25] MEDS: oxyCODONE HCL/ACETAMINOPHEN 1 TAB TABLET PO PRN ×3 (01:12→10:49)
[2019-03-25] MEDS: KETOROLAC TROMETHAMINE 15 MG/ML VIAL IV SCH (05:20)
[2019-03-25] MEDS: LOSARTAN POTASSIUM 50 MG TABLET PO SCH (08:14)
[2019-03-25] MEDS: CYANOCOBALAMIN PO SCH (08:14)
[2019-03-25] MEDS: HYDROCHLOROTHIAZIDE 12.5 MG CAPSULE PO SCH (08:14)
[2019-03-25] MEDS: amLODIPine BESYLATE 10 MG TABLET PO SCH (08:14)
[2019-03-25] MEDS: FOLIC ACID PO SCH (08:14)
[2019-03-25] MEDS: PARoxetine HCL 20 MG TABLET PO SCH (08:15)
[2019-03-25] MEDS: SIMVASTATIN 10 MG TABLET PO SCH (08:21)
[2019-03-25] MEDS: ENOXAPARIN SODIUM 40 MG/0.4 ML SYRG SC SCH (08:21)
[2019-03-25] MEDS: MORPHINE SULFATE 15 MG TABLET.SA PO SCH (08:29)
--- NOTE | 2019-03-25 10:47 | DS ---
(1) Status post right knee replacement Problem: Acute (2) Acute blood loss anemia Problem: Acute (3) Status post left knee replacement Problem: Acute (4) HTN (hypertension) Problem: Chronic (5) Hyperlipemia Problem: Chronic (6) Anxiety and depression Problem: Chronic (7) Insomnia Problem: Chronic (8) RLS (restless legs syndrome) Problem: Chronic Date of Discharge:: 03/25/19 Hospital Course: Mr. Gonzales was admitted to the floor after undergoing staged bilateral total knee arthroplasties. Tolerated this well. Was admitted to the floor postoperatively for 24 hours of IV antibiotics, pain control, medical comanagement, and occupational and physical therapy after each knee. OT and PT were consulted to assist with activities of daily living and ambulation. Was made weightbearing as tolerated with range of motion as tolerated. Pain was initially controlled with IV regimen. This was transitioned to oral once tolerating a by mouth intake. Was resumed on home diet and medications. Had a Ramesh catheter inserted and the operating room which was discontinued on postoperative day 1 after the second knee. A drain was placed intraoperatively into the knee which was discontinued on postoperative day 1 after each knee. Lovenox SCD and CHRISTIE hose were utilized for DVT prophylaxis. Vital signs remained stable to the hospital course. Labs were obtained which showed a final hemoglobin of 9.7 grams. Pre-op hemoglobin was 14.0. He was asymptomatic clinically and thus this will be followed clinically. BMP was reviewed and was stable. Physical examination throughout the hospital course showed an extremity that had sensation that was intact to light touch, palpable pulses, a benign wound, motor intact to the toes, ankle, and knee. Knee range of motion was approximately 10 degrees to 50 degrees. He was somewhat slow to progress with physical therapy and due to his available assistance at home living situation it was felt that he would benefit from continued inpatient therapy. He is being transferred to a skilled facility for additional physical and occupational therapy. Instructions: Continue with weightbearing as tolerated and range of motion as tolerated. It is okay to shower and get the wound wet as long as there is no drainage from the wound. Do not bathe or soak the wound. If there is any drainage from the wound keep the wound clean and dry and cover with dry gauze and tape. Change every 2- 3 days as needed if there is any drainage. Cover wound while showering if there is any drainage. Continue with physical therapy. Resume home diet. Report any fever over 101.5 Fahrenheit, uncontrolled pain, increased drainage, foul odor of drainage, new or increased calf pain or shortness of breath, or any other significant complaints. A 325mg daily aspirin will be started after finishing anticoagulation if not allergic. Continue with CHRISTIE hose on both legs. No driving until instructed otherwise. Follow up in approximately 2-3 weeks. Procedures Performed: see notes below List Procedures: Bilateral total knee arthroplasty Results and Findings: Lab Pending Results 03/22/19 06:05: WBC 8.2, RBC 3.62 L, Hgb 12.3 L, Hct 36.5 L, MCV 100.8 H, MCH 34.0 H, MCHC 33.7, RDW 15.6 H, Plt Count 277, MPV 8.4 03/22/19 06:05: Sodium 135, Plasma Sodium 135, Potassium 3.7, Chloride 100, Carbon Dioxide 29.0, Anion Gap 9.7, BUN 18, Creatinine 1.01, Est GFR (Non-Af Amer) 78, BUN/Creatinine Ratio 17.8, Random Glucose 116 H, Calcium 8.4 03/24/19 06:10: WBC 11.1 H D, RBC 2.93 L, Hgb 9.7 L, Hct 29.8 L, MCV 101.7 H, MCH 33.1 H, MCHC 32.6, RDW 15.5 H, Plt Count 240, MPV 8.4 03/24/19 06:10: Sodium 135, Plasma Sodium 136, Potassium 4.1, Chloride 98, Carbon Dioxide 27.8, Anion Gap 13.3, BUN 20, Creatinine 0.92, Est GFR (Non-Af Amer) 87, BUN/Creatinine Ratio 21.7 H, Random Glucose 138 H, Calcium 8.2 Disposition: SNF Condition: Good Discharge Activity: Activity as tolerated, Weight bearing Discharge Diet: General/regular food Fdc Therapy: Physical Therapy, Occupation Therapy Referrals: Zeke Neal MD [Staff Physician] - 04/12/19 9:30 am Problem Oriented Discharge Instructions to Patient/Family: Total Knee Replacement, Care After, [id number] Additional Patient Instructions (free text): To [facility] at discharge for therapie. PT and OT to evaluate and treat. Follow up with Dr. Neal in the Orthopedic office on ThursdayApril 11 at 9:30am. Ice machine as tolerated when sedentary, at least 4 hours a day, No Maximum. CPM 0-70 degrees flexion, progressing as tolerated up to 110 degrees, increasing 10 degrees daily as tolerated, use 3 times a day for 1-2 hours at a time, may use for longer periods or more often pending patients comfort. Prescriptions (Any new or edited meds): Enoxaparin Sodium [Lovenox] 40 mg SC Q24H #7 disp.syrin Transmission Status: Pending to [facility] Morphine Sulfate [Ms Contin] 15 mg PO Q12H #10 tablet.sa Transmission Status: Received by [facility] oxyCODONE HCL/ACETAMINOPHEN [Percocet 5 MG/325 MG] 2 tab PO Q4H PRN #60 tab PRN Reason: Moderate Pain (Pain Scale 4-6) Transmission Status: Received by [facility] Complete Home Medications List: Complete Home Medication List: PARoxetine HCL [Paxil] 40 mg PO DAILY 06/07/14 Zolpidem Tartrate 10 mg PO HS 06/07/14 amLODIPine BESYLATE [Norvasc] 10 mg PO DAILY 06/07/14 pravastatin 20 mg tablet 20 mg PO DAILY 09/23/17 alprazolam 0.5 mg tablet 0.5 mg PO DAILY PRN 02/24/19 amitriptyline 10 mg tablet 10 mg PO HS 02/24/19 irbesartan 150 mg tablet 300 mg PO DAILY 02/24/19 vitamin B12 0.5 mg-folic acid 1 mg tablet 1 tab PO DAILY 02/24/19 Hydrochlorothiazide [Microzide] 12.5 mg PO DAILY 03/02/19 Enoxaparin Sodium [Lovenox] 40 mg SC Q24H #7 disp.syrin 03/25/19 Morphine Sulfate [Ms Contin] 15 mg PO Q12H #10 tablet.sa 03/25/19 Sennosides/Docusate Sodium [Senokot-S] 2 tab PO HS tab 03/25/19 oxyCODONE HCL/ACETAMINOPHEN [Percocet 5 MG/325 MG] 2 tab PO Q4H PRN #60 tab 03/25/19
[2019-03-25 11:29] VITALS: BP 133/62
== END 2019-03-25 11:40 | DRG 462 ==
LOC: MS 08:31 → EDSTATUS 10:15
PROVIDERS: ADMIT Orthopaedic Surgery; ATTEND Orthopaedic Surgery
CPT/HCPCS: 36415; 73560; 80048; 85027; 97110; 97116; 97161; 97164; 97165; 97535; J2405